=== PATIENT | female | born 1985 | race Asian ===

== ENCOUNTER 2016-10-25 16:16 | Emergency (ER) | payer BC, OTHER ==
[2016-10-25] MEDS ORDERED: ONDANSETRON ODT 4 MG TABLET TL STA (16:46)
[2016-10-25] MEDS ORDERED: IBUPROFEN 600 MG TABLET PO STA (16:46)
[2016-10-25] MEDS ORDERED: IBUPROFEN 600 MG TABLET PO ONE (16:58)
[2016-10-25] MEDS ORDERED: ONDANSETRON ODT 4 MG TABLET ONE (16:58)
[2016-10-25] MEDS ORDERED: HYDROcod/ACETAM 5/325 MG TABLET PO STA (20:29)
[2016-10-25] MEDS ORDERED: ONDANSETRON ODT 4 MG Prepack 2 TL PRN (20:29)
[2016-10-25] MEDS ORDERED: HYDROcod/ACETAM 5/325 MG TABLET ONE (20:34)
[2016-10-25] MEDS ORDERED: ONDANSETRON ODT 4 MG Prepack 2 TL ONE (20:34)
== END 2016-10-25 20:47 | disposition home or self-care (01) ==
DX: G44.40 Drug-induced headache, not elsewhere classified, not intractable (principal); T50.995A Adverse effect of other drugs, medicaments and biological substances, initial encounter; R10.32 Left lower quadrant pain
CPT/HCPCS: 36415; 76830; 76856; 80053; 81003; 81025; 83690; 84443; 85025; 93975; 99283; 99284; A9270; Q0162

== ENCOUNTER 2023-04-01 20:22 | Outpatient (CLI) | payer MEDICAID, OTHER | END 2023-04-01 23:59 | disposition critical access hospital (66) | LOC: EMS 20:22 | DX: R07.89 Other chest pain (principal); V43.53XA Car driver injured in collision with pick-up truck in traffic accident, initial encounter; V47.5XXA Car driver injured in collision with fixed or stationary object in traffic accident, initial encounter; Y92.414 Local residential or business street as the place of occurrence of the external cause | CPT/HCPCS: A0425; A0429 ==

== ENCOUNTER 2023-04-01 20:40 | Emergency (ER) | payer OTHER, MEDICAID ==
[2023-04-01 20:57] VITALS: BP 143/95
[2023-04-01] MEDS ORDERED: iohexoL-300 100 ML VIAL ONE (21:22)
[2023-04-01 21:23] LABS: BASOPHILS # (AUTO) 0.1 10^3/uL (0.0-0.1); BASOPHILS % (AUTO) 0.8 %; EOSINOPHILS # (AUTO) 0.2 10^3/uL (0.0-0.7); EOSINOPHILS % (AUTO) 1.9 %; HCT - HEMATOCRIT 42.9 % (37.0-47.0); HGB - HEMOGLOBIN 13.6 g/dL (12.0-16.0); LYMPHOCYTES # (AUTO) 2.7 10^3/uL (1.5-3.5); LYMPHOCYTES % (AUTO) 27.5 %; MEAN CORPUSCULAR HEMOGLOBIN 28.5 pg (27.0-31.0); MEAN CORPUSCULAR HGB CONC 31.7 g/dL (32.0-36.0); MEAN CORPUSCULAR VOLUME 89.7 fL (81.0-99.0); MEAN PLATELET VOLUME 10.8 fL (7.9-10.8); MONOCYTES # (AUTO) 0.6 10^3/uL (0.0-1.0); NEUTROPHILS # (AUTO) 6.2 10^3/uL (1.5-6.6); NEUTROPHILS % (AUTO) 63.6 %; PLT - PLATELET COUNT 274 10^3/uL (130-450); RED BLOOD COUNT 4.78 10^6/uL (4.20-5.40); RED CELL DISTRIBUTION WIDTH 12.8 % (12.0-15.0); WHITE BLOOD COUNT 9.8 x10^3/uL (4.8-10.8)
[2023-04-01 21:37] LABS: ALBUMIN 3.9 g/dL (3.2-5.5); ALBUMIN/GLOBULIN RATIO 0.8 (1.0-2.2); BILIRUBIN,TOTAL 0.9 mg/dL (0.2-1.0); CALCIUM 9.1 mg/dL (8.5-10.3); CREATININE 1.1 mg/dL (0.4-1.0); POTASSIUM 3.6 mmol/L (3.5-5.0); TOTAL PROTEIN 8.6 g/dL (6.7-8.2)
[2023-04-01] MEDS: iohexoL-300 100 ML VIAL IVP ONE (21:48)
[2023-04-01 21:51] LABS: HCG,QUALITATIVE BLOOD NEGATIVE
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
[2023-04-01] MEDS: CYCLOBENZAPRINE 10 MG Prepack 2 PO PRN (22:33)
[2023-04-01] MEDS: ACETAMINOPHEN 325 MG TABLET PO STA (22:38)
== END 2023-04-01 22:45 | disposition home or self-care (01) ==
LOC: ED 20:40
DX: S39.012A Strain of muscle, fascia and tendon of lower back, initial encounter (principal); R07.89 Other chest pain; V89.2XXA Person injured in unspecified motor-vehicle accident, traffic, initial encounter; Y92.410 Unspecified street and highway as the place of occurrence of the external cause
CPT/HCPCS: 36415; 71260; 74177; 80053; 83690; 84703; 85025; 99284; A9270; Q9967